=== PATIENT | female | born 1940 | race Caucasian/White ===

== ENCOUNTER 2017-01-08 22:56 | Inpatient (IN) | payer MEDICARE ==
[2017-01-08] MEDS ORDERED: [UNRECOGNIZED DRUG - OTHER] PO (23:22)
[2017-01-08] MEDS ORDERED: ATIVAN0.5 M1 PO (23:22)
[2017-01-08] MEDS ORDERED: BACTRIM DS TAB1 EAC2 PO (23:23)
[2017-01-08] MEDS ORDERED: TOPROL XL50 M1 PO (23:24)
[2017-01-08] MEDS ORDERED: VENLAFAXINE HCL75 M3 PO (23:24)
[2017-01-09 00:01] LABS: HCT-HEMATOCRIT 24.6 % (34.0-49.0); MCH (MEAN CORPUSCULAR HGB) 24.8 pg (28.0-32.0); MCHC MEAN CORPUSCULAR HGB CONC 32.5 % (32.0-36.0); MCV (MEAN CELL VOLUME) 76.4 fl (82.0-96.0); MEAN PLATELET VOLUME 8.1 cmc (9.4-12.4); NEUTROPHIL-AUTOMATED 21.6 tho/cmm (1.6-8.0); PLATELET COUNT 491 tho/cmm (150-450); RED BLOOD COUNT 3.22 mil/cmm (4.00-5.20); RED CELL DISTRIBUTION WIDTH 18.2 % (12.4-16.4); WHITE BLOOD COUNT 23.8 tho/cmm (4.0-10.0)
[2017-01-09 00:20] LABS: ALB/GLOB RATIO 0.4 (0.8-2.0); ALKALINE PHOSPHATASE 170 U/L (33-138); ALT/SGPT 20 U/L (12-78); ANION GAP 18 mmol/L (0-20); AST/SGOT 25 U/L (10-40); BILIRUBIN,TOTAL 0.8 mg/dl (0-1.5); BLOOD UREA NITROGEN 27 mg/dl (6-24); CALCIUM 8.2 mg/dl (8.5-10.5); CARBON DIOXIDE-VENOUS 24 mmol/L (22-32); CHLORIDE 89 mmol/l (96-110); CREATININE 1.18 mg/dl (0.50-1.10); GLUCOSE 132 mg/dL (70-110); LIPASE 231 U/L (73-393); MAGNESIUM 1.7 mg/dl (1.8-2.6); POTASSIUM 3.5 mmol/L (3.7-5.1); SODIUM 127 mmol/L (135-145); eGFR VALUE FOR BLACK 51 mL/Min
[2017-01-09 00:25] LABS: TSH-THYROID STIMULATING HORM. 2.87 uIU/ml (0.40-3.80)
[2017-01-09 00:33] LABS: BAND % 2 % (0-20); BAND ABSOLUTE COUNT 0.5 tho/cmm (0-2.0)
[2017-01-09 01:17] LABS: URINE APPEARANCE HAZY; URINE BILIRUBIN NEGATIVE (NEG); URINE BLOOD SMALL (NEG); URINE COLOR YELLOW; URINE GLUCOSE (UA) NEGATIVE (NEG); URINE KETONE NEGATIVE (NEG); URINE LEUKOCYTE ESTERASE POSITIVE (NEG); URINE NITRITE NEGATIVE (NEG); URINE PROTEIN SMALL (NEG)
[2017-01-09 01:27] LABS: URINE BACTERIA 2+; URINE WBC 15-20 /[HPF] (0-5)
[2017-01-09 06:08] LABS: BASO % 0.1 % (0-2); EOS % 0.1 % (0-7); HCT-HEMATOCRIT 25.7 % (34.0-49.0); HGB-HEMOGLOBIN 8.3 gm/dl (12.0-15.5); IMMATURE GRANULOCYTES ABSOLUTE 0.12 tho/cmm (0-0.03); IMMATURE GRANULOCYTES PERCENT 0.6 % (0-0.3); LYMPH % 4.4 % (20-45); LYMPH ABSOLUTE COUNT 0.8 tho/cmm (0.8-4.5); MCH (MEAN CORPUSCULAR HGB) 24.9 pg (28.0-32.0); MCHC MEAN CORPUSCULAR HGB CONC 32.3 % (32.0-36.0); MCV (MEAN CELL VOLUME) 77.2 fl (82.0-96.0); MEAN PLATELET VOLUME 8.2 cmc (9.4-12.4); MONOCYTE ABSOLUTE COUNT 0.8 tho/cmm (0.0-1.2); NEUTROPHIL ABSOLUTE COUNT 17.4 tho/cmm (1.6-8.0); NEUTROPHIL-AUTOMATED 17.4 tho/cmm (1.6-8.0); NEUTROPHILS % 90.8 % (40-80); PLATELET COUNT 540 tho/cmm (150-450); RED BLOOD COUNT 3.33 mil/cmm (4.00-5.20); RED CELL DISTRIBUTION WIDTH 18.2 % (12.4-16.4); WHITE BLOOD COUNT 19.1 tho/cmm (4.0-10.0)
[2017-01-09 06:09] LABS: INR 1.3 INR (0.9-1.1); PROTHROMBIN TIME 15.1 SECONDS (9.0-13.6)
[2017-01-09 06:15] LABS: ANION GAP 15 mmol/L (0-20); BLOOD UREA NITROGEN 20 mg/dl (6-24); CALCIUM 7.9 mg/dl (8.5-10.5); CARBON DIOXIDE-VENOUS 25 mmol/L (22-32); CHLORIDE 94 mmol/l (96-110); CREATININE 0.99 mg/dl (0.50-1.10); GLUCOSE 123 mg/dL (70-110); POTASSIUM 3.7 mmol/L (3.7-5.1); SODIUM 130 mmol/L (135-145); eGFR VALUE FOR BLACK 63 mL/Min
[2017-01-09 06:27] LABS: PROCALCITONIN 0.57 ng/ml (0.05-0.09)
[2017-01-09] MEDS ORDERED: SERTRALINE HCL25 M3 PO (10:03)
[2017-01-09] MEDS ORDERED: HYDRALAZINE HCL50 M1 PO (10:31)
[2017-01-09 17:23] LABS: ANION GAP 15 mmol/L (0-20); BLOOD UREA NITROGEN 17 mg/dl (6-24); CARBON DIOXIDE-VENOUS 21 mmol/L (22-32); CHLORIDE 101 mmol/l (96-110); CREATININE 0.82 mg/dl (0.50-1.10); GLUCOSE 91 mg/dL (70-110); POTASSIUM 3.9 mmol/L (3.7-5.1); SODIUM 133 mmol/L (135-145); eGFR VALUE FOR BLACK 79 mL/Min
--- NOTE | 2017-01-09 19:45 | NUR ---
VIRTUAL CARE NOTE: ASSESMENT DEFERRED. PT. SLEEPING.
[2017-01-10 05:55] LABS: EOS % 0.8 % (0-7); EOSINOPHIL ABSOLUTE COUNT 0.2 tho/cmm (0.0-0.7); HGB-HEMOGLOBIN 7.4 gm/dl (12.0-15.5); IMMATURE GRANULOCYTES PERCENT 0.5 % (0-0.3); LYMPH % 5.1 % (20-45); MCH (MEAN CORPUSCULAR HGB) 25.3 pg (28.0-32.0); MCHC MEAN CORPUSCULAR HGB CONC 32.5 % (32.0-36.0); MCV (MEAN CELL VOLUME) 77.8 fl (82.0-96.0); MONO % 3.7 % (0-12); MONOCYTE ABSOLUTE COUNT 0.7 tho/cmm (0.0-1.2); NEUTROPHIL ABSOLUTE COUNT 18.1 tho/cmm (1.6-8.0); NEUTROPHIL-AUTOMATED 18.1 tho/cmm (1.6-8.0); NEUTROPHILS % 89.9 % (40-80); PLATELET COUNT 464 tho/cmm (150-450); RED BLOOD COUNT 2.93 mil/cmm (4.00-5.20); RED CELL DISTRIBUTION WIDTH 18.1 % (12.4-16.4); WHITE BLOOD COUNT 20.2 tho/cmm (4.0-10.0)
[2017-01-10 06:04] LABS: HCT-HEMATOCRIT 22.8 % (34.0-49.0)
[2017-01-10 06:12] LABS: ALB/GLOB RATIO 0.3 (0.8-2.0); ALBUMIN 1.6 g/dl (3.5-5.0); ALKALINE PHOSPHATASE 132 U/L (33-138); ALT/SGPT 17 U/L (12-78); ANION GAP 12 mmol/L (0-20); AST/SGOT 19 U/L (10-40); BLOOD UREA NITROGEN 20 mg/dl (6-24); CALCIUM 8.2 mg/dl (8.5-10.5); CARBON DIOXIDE-VENOUS 24 mmol/L (22-32); CHLORIDE 102 mmol/l (96-110); CREATININE 0.83 mg/dl (0.50-1.10); MAGNESIUM 2.2 mg/dl (1.8-2.6); PHOSPHOROUS 2.5 mg/dl (2.5-4.9); PREALBUMIN 3.5 mg/dl (20.0-40.0); SODIUM 134 mmol/L (135-145); eGFR VALUE FOR BLACK 78 mL/Min
[2017-01-10 06:13] LABS: BILIRUBIN,TOTAL 0.3 mg/dl (0-1.5); GLUCOSE 139 mg/dL (70-110)
--- NOTE | 2017-01-10 19:23 | NUR ---
VIRTURAL CARE NOTE: ASSESSMENT DEFERRED. PT. SLEEPING.
[2017-01-11 07:44] LABS: BASO % 0.1 % (0-2); EOS % 1.9 % (0-7); EOSINOPHIL ABSOLUTE COUNT 0.3 tho/cmm (0.0-0.7); IMMATURE GRANULOCYTES ABSOLUTE 0.16 tho/cmm (0-0.03); LYMPH % 7.2 % (20-45); LYMPH ABSOLUTE COUNT 1.2 tho/cmm (0.8-4.5); MCH (MEAN CORPUSCULAR HGB) 25.3 pg (28.0-32.0); MCHC MEAN CORPUSCULAR HGB CONC 32.1 % (32.0-36.0); MCV (MEAN CELL VOLUME) 78.7 fl (82.0-96.0); MEAN PLATELET VOLUME 7.8 cmc (9.4-12.4); MONO % 5.6 % (0-12); MONOCYTE ABSOLUTE COUNT 0.9 tho/cmm (0.0-1.2); NEUTROPHIL ABSOLUTE COUNT 13.4 tho/cmm (1.6-8.0); NEUTROPHIL-AUTOMATED 13.4 tho/cmm (1.6-8.0); NEUTROPHILS % 84.2 % (40-80); PLATELET COUNT 361 tho/cmm (150-450); RED BLOOD COUNT 2.77 mil/cmm (4.00-5.20); RED CELL DISTRIBUTION WIDTH 18.4 % (12.4-16.4); WHITE BLOOD COUNT 15.9 tho/cmm (4.0-10.0)
[2017-01-11 07:54] LABS: ANION GAP 14 mmol/L (0-20); BLOOD UREA NITROGEN 20 mg/dl (6-24); CALCIUM 8.3 mg/dl (8.5-10.5); CARBON DIOXIDE-VENOUS 24 mmol/L (22-32); CHLORIDE 100 mmol/l (96-110); CREATININE 0.71 mg/dl (0.50-1.10); GLUCOSE 115 mg/dL (70-110); POTASSIUM 3.8 mmol/L (3.7-5.1); SODIUM 134 mmol/L (135-145); eGFR VALUE FOR BLACK >90 mL/Min
[2017-01-11 07:55] LABS: HCT-HEMATOCRIT 21.8 % (34.0-49.0)
--- NOTE | 2017-01-11 15:21 | NUR ---
VIRTUAL CARE NOTE: PT NOT AVAILABLE-OUT OF ROOM AT THIS TIME
--- NOTE | 2017-01-11 18:44 | NUR ---
VIRTUAL CARE NOTE: PT. IN BED, APEARS SLEEPY. STATES IS DOING OK, HAS BEEN WALKING AND HAS BEEN TOLERATING HER DIET. DENIES QUESTIONS OR FURTHER NEEDS AT THIS TIME. INTRUCTED TO CALL FOR FUTURE NEEDS.
[2017-01-12 08:13] LABS: BASO % 0.2 % (0-2); EOS % 2.2 % (0-7); EOSINOPHIL ABSOLUTE COUNT 0.3 tho/cmm (0.0-0.7); IMMATURE GRANULOCYTES PERCENT 0.8 % (0-0.3); LYMPH ABSOLUTE COUNT 1.1 tho/cmm (0.8-4.5); MEAN PLATELET VOLUME 7.8 cmc (9.4-12.4); MONOCYTE ABSOLUTE COUNT 0.8 tho/cmm (0.0-1.2); NEUTROPHIL ABSOLUTE COUNT 10.3 tho/cmm (1.6-8.0); NEUTROPHIL-AUTOMATED 10.3 tho/cmm (1.6-8.0); NEUTROPHILS % 81.8 % (40-80); PLATELET COUNT 393 tho/cmm (150-450); RED BLOOD COUNT 2.84 mil/cmm (4.00-5.20); RED CELL DISTRIBUTION WIDTH 18.5 % (12.4-16.4); WHITE BLOOD COUNT 12.5 tho/cmm (4.0-10.0)
[2017-01-12 08:16] LABS: HCT-HEMATOCRIT 22.4 % (34.0-49.0); MCHC MEAN CORPUSCULAR HGB CONC 31.3 % (32.0-36.0)
[2017-01-12 08:17] LABS: MCH (MEAN CORPUSCULAR HGB) 24.6 pg (28.0-32.0); MCV (MEAN CELL VOLUME) 78.9 fl (82.0-96.0)
[2017-01-12 08:29] LABS: ANION GAP 13 mmol/L (0-20); BLOOD UREA NITROGEN 17 mg/dl (6-24); CALCIUM 8.3 mg/dl (8.5-10.5); CARBON DIOXIDE-VENOUS 26 mmol/L (22-32); CHLORIDE 102 mmol/l (96-110); CREATININE 0.64 mg/dl (0.50-1.10); FERRITIN 288 ng/ml (8-250); GLUCOSE 130 mg/dL (70-110); POTASSIUM 3.6 mmol/L (3.7-5.1); SODIUM 137 mmol/L (135-145); eGFR VALUE FOR BLACK >90 mL/Min
[2017-01-12 08:30] LABS: IRON 13 ug/dl (37-170); IRON BINDING CAPACITY 144 ug/dl (250-450)
--- NOTE | 2017-01-12 21:42 | NUR ---
VIRTUAL CARE NOTE: ASSESSMENT DEFERRED. ATTEMPTED TO ROUND X2. PT NOT IN ROOM OR SLEEPING. WILL CONTINUE WITH CHART REVIEW.
[2017-01-13 05:33] LABS: ANION GAP 12 mmol/L (0-20); BLOOD UREA NITROGEN 16 mg/dl (6-24); CALCIUM 8.5 mg/dl (8.5-10.5); CARBON DIOXIDE-VENOUS 27 mmol/L (22-32); CHLORIDE 102 mmol/l (96-110); GLUCOSE 130 mg/dL (70-110); MAGNESIUM 1.7 mg/dl (1.8-2.6); PHOSPHOROUS 3.6 mg/dl (2.5-4.9); POTASSIUM 3.7 mmol/L (3.7-5.1); SODIUM 137 mmol/L (135-145); eGFR VALUE FOR BLACK >90 mL/Min
[2017-01-13 05:52] LABS: BASO % 0.2 % (0-2); EOS % 3.1 % (0-7); EOSINOPHIL ABSOLUTE COUNT 0.3 tho/cmm (0.0-0.7); HGB-HEMOGLOBIN 7.2 gm/dl (12.0-15.5); IMMATURE GRANULOCYTES ABSOLUTE 0.11 tho/cmm (0-0.03); IMMATURE GRANULOCYTES PERCENT 1.1 % (0-0.3); LYMPH % 13.9 % (20-45); LYMPH ABSOLUTE COUNT 1.3 tho/cmm (0.8-4.5); MCH (MEAN CORPUSCULAR HGB) 25.1 pg (28.0-32.0); MCHC MEAN CORPUSCULAR HGB CONC 31.9 % (32.0-36.0); MCV (MEAN CELL VOLUME) 78.7 fl (82.0-96.0); MEAN PLATELET VOLUME 8.1 cmc (9.4-12.4); MONO % 7.4 % (0-12); MONOCYTE ABSOLUTE COUNT 0.7 tho/cmm (0.0-1.2); NEUTROPHIL ABSOLUTE COUNT 7.2 tho/cmm (1.6-8.0); NEUTROPHIL-AUTOMATED 7.2 tho/cmm (1.6-8.0); NEUTROPHILS % 74.3 % (40-80); PLATELET COUNT 449 tho/cmm (150-450); RED BLOOD COUNT 2.87 mil/cmm (4.00-5.20); RED CELL DISTRIBUTION WIDTH 18.6 % (12.4-16.4); WHITE BLOOD COUNT 9.6 tho/cmm (4.0-10.0)
[2017-01-13 06:04] LABS: HCT-HEMATOCRIT 22.6 % (34.0-49.0)
--- NOTE | 2017-01-13 14:13 | NUR ---
VIRTUAL CARE NOTE: PT SLEEPING AT THIS TIME, DURING VIRTUAL NURSE ROUNDS. POSSIBLY CHECK BACK LATER. WILL CONTINUE TO MONITOR. ELECTRONIC CHART REVIEWED.
[2017-01-14 04:57] LABS: ANION GAP 12 mmol/L (0-20); BLOOD UREA NITROGEN 17 mg/dl (6-24); CALCIUM 8.5 mg/dl (8.5-10.5); CARBON DIOXIDE-VENOUS 26 mmol/L (22-32); CHLORIDE 102 mmol/l (96-110); CREATININE 0.68 mg/dl (0.50-1.10); GLUCOSE 126 mg/dL (70-110); POTASSIUM 3.7 mmol/L (3.7-5.1); SODIUM 136 mmol/L (135-145); eGFR VALUE FOR BLACK >90 mL/Min
--- NOTE | 2017-01-14 19:00 | NUR ---
VIRTUAL CARE NOTE: PT. IN THE CHAIR, FEELS BETTER TODAY. UNABLE TO VIEW PT. ENTIRELY DUE TO CAMER[place] BLOCKING THE PT. HAS HAD POOR TASTE WITH FOOD AND IT HAS BEEN HARD TO EAT. HAS BEEN ABLE TO EAT MOST OF WHAT THE FAMILY HAS BROUGHT IN. EDUCATION PROVIDED OF NPO STATUS NEEDED PRIOR CT SCAN IN THE AM. DENIES FURTHER NEEDS AT THIS TIME. INSTRUCTED TO CALL FOR FUTURE NEEDS. STATES VERBAL AGREEMENT.
[2017-01-15 06:17] LABS: HGB-HEMOGLOBIN 6.9 gm/dl (12.0-15.5); PLATELET COUNT 377 tho/cmm (150-450)
[2017-01-15 06:22] LABS: ANION GAP 12 mmol/L (0-20); BLOOD UREA NITROGEN 18 mg/dl (6-24); CALCIUM 8.5 mg/dl (8.5-10.5); CARBON DIOXIDE-VENOUS 25 mmol/L (22-32); CHLORIDE 106 mmol/l (96-110); CREATININE 0.63 mg/dl (0.50-1.10); GLUCOSE 107 mg/dL (70-110); POTASSIUM 4.2 mmol/L (3.7-5.1); SODIUM 139 mmol/L (135-145); eGFR VALUE FOR BLACK >90 mL/Min
--- NOTE | 2017-01-15 21:41 | NUR ---
VN ROUNDING-PATIENT LAYING IN BED DENIES ANY PAIN. THE NURSE IS GETTING READY TO HANG SOME BLOOD. THE PATIENT DOES NOT HAVE ANY QUESTIONS OR CONCERNS ABOUT WHAT IS GOING ON. CHART REVIEWED.
[2017-01-16 05:46] LABS: ANION GAP 13 mmol/L (0-20); BLOOD UREA NITROGEN 17 mg/dl (6-24); CALCIUM 8.6 mg/dl (8.5-10.5); CARBON DIOXIDE-VENOUS 24 mmol/L (22-32); CHLORIDE 105 mmol/l (96-110); CREATININE 0.72 mg/dl (0.50-1.10); GLUCOSE 117 mg/dL (70-110); POTASSIUM 4.3 mmol/L (3.7-5.1); SODIUM 138 mmol/L (135-145); eGFR VALUE FOR BLACK >90 mL/Min
[2017-01-16] MEDS ORDERED: LEVAQUIN500 M1 PO (10:41)
[2017-01-16] MEDS ORDERED: FLAGYL500 M1 PO (10:42)
== END 2017-01-16 12:25 | disposition home health service (06) | DRG 862 ==
LOC: EDMED 22:56 → EMR2 01-09 04:50 → 5WD 01-09 05:29
PROVIDERS: Emergency Medicine; Internal Medicine; Registered Nurse; Surgery; ADMIT Hospitalist
PROC: 02HV33Z Insertion of Infusion Device into Superior Vena Cava, Percutaneous Approach (ICD-10-PCS; principal; 2017-01-09)
PROC: 3E0436Z Introduction of Nutritional Substance into Central Vein, Percutaneous Approach (ICD-10-PCS; 2017-01-10)
PROC: 30243N1 Transfusion of Nonautologous Red Blood Cells into Central Vein, Percutaneous Approach (ICD-10-PCS; 2017-01-16)
DX: T81.4XXA Infection following a procedure, initial encounter (principal); K65.1 Peritoneal abscess; N17.9 Acute kidney failure, unspecified; E46 Unspecified protein-calorie malnutrition; E87.1 Hypo-osmolality and hyponatremia; D62 Acute posthemorrhagic anemia; E11.65 Type 2 diabetes mellitus with hyperglycemia; N13.30 Unspecified hydronephrosis; N39.0 Urinary tract infection, site not specified; Z85.038 Personal history of other malignant neoplasm of large intestine; Z90.49 Acquired absence of other specified parts of digestive tract; I10 Essential (primary) hypertension; F41.9 Anxiety disorder, unspecified; F32.9 Major depressive disorder, single episode, unspecified; E11.9 Type 2 diabetes mellitus without complications; E87.6 Hypokalemia; E83.42 Hypomagnesemia; B96.20 Unspecified Escherichia coli [E. coli] as the cause of diseases classified elsewhere; R19.7 Diarrhea, unspecified; Z68.23 Body mass index [BMI] 23.0-23.9, adult
CPT/HCPCS: C1751; J1335; J1650; J2405; J3475; J7030; P9016; Q9967